=== PATIENT | female | born 1995 ===

== ENCOUNTER → 2019-01-09 21:53 | Outpatient (REF) | payer BC, SELFPAY ==
[2019-01-10 02:03] LABS: Free T3, Triiodothyronine Free 3.56 pg/mL (2.77-5.27); Free T4, Direct Thyroxine 1.17 ng/dL (0.78-2.19)
[2019-01-10 02:17] LABS: Thyroid Stimulating Hormone 1.31 uIU/mL (0.47-4.68)
[2019-01-11 16:07] LABS: Anti Thyroglobulin Antibody 1 IU/mL (< 2); Thyroid Peroxidase Antibodies 190 IU/mL (< 9)
[2019-01-13 18:10] LABS: Progesterone 0.6 ng/mL
[2019-01-16 13:32] LABS: Testosterone, Total 37.5; Testosterone,Free 1.4
[2019-01-16 13:36] LABS: Dehydroepiandrosterone (DHEA) 283
== END ==
LOC: LAB 21:53
PROVIDERS: Visit Provider Naturopath
DX: E06.3 Autoimmune thyroiditis (principal); E72.12 Methylenetetrahydrofolate reductase deficiency; R53.83 Other fatigue
CPT/HCPCS: 36415; 82627; 82728; 84144; 84402; 84403; 84439; 84443; 84481; 86376; 86800